=== PATIENT | female | born 1990 | race Caucasian/White ===

== ENCOUNTER 2025-11-12 18:46 | Emergency (ER) | payer MEDICAID, OTHER ==
[~2025-11-12] VITALS: Ht 162.6 cm; Wt 91.0 kg
[2025-11-12 19:01] VITALS: O2SAT 98
[2025-11-12 20:06] LABS: BASOPHILS % 0.9 % (0.0-2.0); EOSINOPHILS % 0.6 % (0.0-5.0); HEMATOCRIT. 38.7 % (36.0-48.0); HEMOGLOBIN. 12.9 g/dL (12.0-16.0); LYMPHOCYTES % 25.7 % (20.0-50.0); MEAN PLATELET VOLUME 8.6 fl (7.4-10.4); MONOCYTES % 5.5 % (2.0-8.0); NEUTROPHILS % 67.3 % (40.0-76.0); PLATELET 338 x1000/uL (130-400); RED BLOOD CELL COUNT 3.91 mill/uL (4.2-5.4); RED CELL DISTRIBUTION WIDTH 14.1 % (11.6-14.6)
[2025-11-12 20:19] LABS: CREATININE 0.7 mg/dL (0.6-1.0); HCG SCREEN NEGATIVE; UREA NITROGEN BLOOD 6 mg/dL (9-23)
[2025-11-12 20:20] LABS: PROTEIN TOTAL 7.5 g/dL (6.0-8.3)
[2025-11-12 20:21] LABS: ASPARTATE AMINOTRANSFERASE 18 IU/L (<34); BILIRUBIN DIRECT 0.3 mg/dL (<=3.0); BILIRUBIN TOTAL 0.8 mg/dL (0.1-1.0)
[2025-11-12] MEDS ORDERED: ONDA-239 PO (20:28)
[2025-11-12] MEDS: MAGNESIUM/ALUMINUM HYDROXIDE/SIMETHICONE 30ML UDC PO ONE (20:31)
[2025-11-12] MEDS: FAMOTIDINE 20MG TABLET PO ONE (20:31)
[2025-11-12] MEDS: ONDANSETRON 4MG ODT PO ONE (20:31)
[2025-11-12 20:39] VITALS: BP 168/101; PULSE 72; RESP 18; TEMP 37.1; O2SAT 97
== END 2025-11-12 20:56 | disposition home or self-care (01) ==
LOC: ER 18:46
DX: A08.4 Viral intestinal infection, unspecified (principal)
CPT/HCPCS: 99284; 80076; 80048; 84703; 83690; 85025; 36415; Q0162